=== PATIENT | female | born 1950 | race Caucasian/White ===

== ENCOUNTER 2024-02-16 13:11 | Emergency (ER) | payer MEDICARE, MEDICAID ==
[2024-02-16] MEDS: Ondansetron 4 MG/2 ML SDV IVPUSH STA (13:41)
[2024-02-16 13:44] LABS: BASOPHILS ABSOLUTE AUTO 0.02 10^3/uL (0.00-0.50); BASOPHILS PERCENT AUTO 0.2 % (0-1); EOSINOPHILS ABSOLUTE AUTO 0.04 10^3/uL (0.00-1.50); EOSINOPHILS PERCENT AUTO 0.4 % (0-6); HEMATOCRIT 53.8 % (37.0-47.0); HEMOGLOBIN 17.9 g/dL (12.0-16.0); IMMATURE GRAN ABSOLUTE AUTO 0.07 10^3/uL (0.00-0.49); IMMATURE GRAN PERCENT AUTO 0.7 % (0.0-4.9); LYMPHOCYTES ABSOLUTE AUTO 0.86 10^3/uL (0.60-5.00); LYMPHOCYTES PERCENT AUTO 8.7 % (24-44); MEAN CORPUSCULAR HEMOGLOBIN 29.4 pg (27.0-32.0); MEAN CORPUSCULAR HGB CONC 33.3 g/dL (32.0-36.0); MEAN CORPUSCULAR VOLUME 88.5 fL (83.0-97.0); MONOCYTES ABSOLUTE AUTO 2.06 10^3/uL (0.00-1.50); MONOCYTES PERCENT AUTO 20.8 % (0-10); NEUTROPHILS ABSOLUTE AUTO 6.86 x10^3/uL (1.80-8.00); NEUTROPHILS PERCENT AUTO 69.2 % (41-71); PLATELET COUNT,PLT 399 10^3/uL (150-400); RED BLOOD CELL COUNT 6.08 x10^6/uL (4.00-5.50); WHITE BLOOD CELL COUNT,WBC 9.9 10^3/uL (4.0-11.0)
[2024-02-16 13:56] LABS: ALBUMIN 3.1 g/dL (3.4-5.0); BILIRUBIN TOTAL 0.6 mg/dL (0.0-1.0); C-REACTIVE PROTEIN 7.16 mg/dL (<=0.50); CALCIUM 9.6 mg/dL (8.4-10.1); CREATININE 2.3 mg/dL (0.6-1.0); EST CRCL DRUG DOSING (CG) 16.97 mL/min; PROTEIN TOTAL,TP 7.7 g/dL (6.4-8.2)
[2024-02-16] MEDS: HYDROmorphone 0.5 MG/0.5 ML Syringe IVPUSH ONE ×2 (14:14→16:54)
[2024-02-16] MEDS: Benzocaine 20% Topical Spray UD MUCMEM ONE (15:39)
== END 2024-02-16 17:25 ==
LOC: CC.ED 13:11
DX: K43.6 Other and unspecified ventral hernia with obstruction, without gangrene (principal); Z88.0 Allergy status to penicillin; Z88.8 Allergy status to other drugs, medicaments and biological substances; Z91.018 Allergy to other foods; Z79.890 Hormone replacement therapy; Z79.899 Other long term (current) drug therapy
CPT/HCPCS: 36415; 43752; 74018; 74176; 80053; 82271; 83690; 85025; 86140; 96374; 96375; 96376; 99284; A9270; J1171; J2405